=== PATIENT | male | born 1955 | race Caucasian/White ===

== ENCOUNTER 2025-04-20 11:42 | Emergency (ER) | payer OTHER, SELFPAY ==
[2025-04-20] VITALS (7 sets, daily range): BP systolic 118–165; BP diastolic 63–75; PULSE 75–86; RESP 14–22; TEMP 36.2–36.9; O2SAT 90–98; BMI 32.1
--- NOTE | 2025-04-20 12:13 | EDS_ITS ---
HPI History of Present Illness Chief Complaint: Chest Pain Informant: patient Onset/Context/Timing Onset: Weeks Activity at onset: sudden Timing: Continuous Quality: Positive for Dull Location: Right Parasternal and Right Chest Worsened By: Exertion Relieved By: Nothing Associated Symptoms: Positive for Dyspnea and Cough; Negative for Nausea, Vomiting, Diaphoresis, Fever, Lightheadedness, Acid Reflux or Palpitations Narrative Narrative: Patient presents with chest pain that has been constant for the past week. Patient states it began rather suddenly. Patient states it is worse over the right side of his chest. Patient states it is constant. Patient states it is worse with any exertion. Patient also admits to a cough with some green-yellow sputum. Patient describes his pain as dull. Patient denies any fevers or chills. Patient had an outpatient chest x-ray which showed atelectasis versus infiltrate in the right lower lobe. CVD Risk Factors: Negative for Hypertension, Diabetes, Hypercholesterolemia, Family History 1' </=55 or Smoking PE Risk Factors: Negative for Recent Travel/Surgery, Recent Immobilization, Prior DVT or PE, Cancer or OCP + Smoking + >/=35 PFSH PFSH Medical History (Updated 04/20/25 @ 15:[address] Neftali Yanez, DO) Kidney stones Non-smoker Irregular heart beat Medical History no medical history no medical history Home Medications ?Medication ?Instructions ?Recorded ?Last Taken ?Type cefalexin 750 mg PO DAILY 04/20/25 Unk nown History iburopen 200 mg PO PRN pain 04/20/25 Unknown History Allergy/AdvReac Type Severity Reaction Status Date / Time No Known Allergies Allergy Verified 04/20/25 11:43 Surgical History no surgical history no surgical history Social History Smoking Status: Never smoker ROS ROS ED Constitutional Constitutional ED: Denies chills or fever(s) Eyes Eyes: Denies blurry vision or change in vision ENT ENT ED: Denies rhinorrhea or sore throat Cardiovascular Cardiovascular: Reports as per HPI and chest pain; Denies palpitations Respiratory/Chest Respiratory/Chest: Reports cough and dyspnea Gastrointestinal Gastrointestinal: Denies nausea or vomiting Genitourinary Genitourinary ED: Denies dysuria or hematuria Musculoskeletal Musculoskeletal: Denies back pain or neck pain Integumentary Denies abscess or rash Neurologic Neurologic: Denies headache(s) or weakness Allergic/Immunologic Allergic/Immunologic ED: Denies mouth swelling or urticaria EXAM Physical Exam Const Vital Signs: 04/20/25 11:44 04/20/25 12:00 04/20/25 12:21 Temperature 97.1 F L Temperature Source Temporal Pulse Rate 86 Respiratory Rate 14 Respiratory Effort Short of Breath Blood Pressure 165/75 H Blood Pressure Mean 105 Pulse Ox 98 Oxygen Delivery Method Room Air Room Air 04/20/25 12:42 04/20/25 13:00 04/20/25 14:00 Temperature Temperature Source Pulse Rate 83 82 82 Respiratory Rate 16 22 H 21 H Respiratory Effort Blood Pressure 144/69 H 127/64 H 130/69 H Blood Pressure Mean 94 85 89 Pulse Ox 94 91 90 Oxygen Delivery Method Room Air Room Air Room Air 04/20/25 15:00 Temperature Temperature Source Pulse Rate 80 Respiratory Rate 16 Respiratory Effort Blood Pressure 133/65 H Blood Pressure Mean 87 Pulse Ox 93 Oxygen Delivery Method Positive well nourished and well developed Constitutional Narrative: BMI is 32.1. General Appearance ED: well developed and NAD HEENT Reports moist mucous membranes Neck supple and no JVD Chest Wall palpation of chest normal Resp normal respiratory effort and clear to auscultation bilaterally Cardio regular rate and regular rhythm GI soft to palpation, non-tender and non-distended Extremity normal to inspection Neuro oriented x3, CN's II-XII intact bilaterally and no sensory deficits noted Sensorium / Orientation: awake and alert Motor Exam: strength 5/5 throughout Psych mental status grossly normal MDM MDM MDM Narrative Medical decision making narrative: Differential diagnosis was pneumonia, bronchitis, pleurisy, pulmonary embolism, electrolyte abnormality, cardiac dysrhythmia, cardiac ischemia, and musculoskeletal pain. EKG will be obtained to assess for cardiac dysrhythmia and cardiac ischemia. CBC will be obtained to assess for leukocytosis and. Basic metabolic profile will be obtained to assess for electrolyte abnormality and renal function. High-sensitivity troponin will be obtained to assess for cardiac ischemia. D-dimer will be obtained to assess for pulmonary embolism. History & Record Review Additional record(s) reviewed:: No prior records Lab Data Attestation: I reviewed the patient's lab results. Lab results narrative: CBC was reviewed. There is a mild anemia with a hemoglobin of 8.4 and hematocrit of 26.2. This consistent with prior reported outpatient result of 8.5. Hematocrit was 26.2. The remainder is within normal limits. Basic metabolic profile was reviewed. BUN was 33 and creatinine was 2.11. There are no prior labs for comparison. D-dimer was reviewed and was 0.62. This is normal for the patient's age. Initial high-sensitivity troponin was reviewed and was 28. 2-hour repeat high-sensitivity troponin was reviewed and was 30. Labs: Laboratory Results - last 24 hr 04/20/25 04/20/25 12:30 15:08 WBC 3.8 L RBC 2.76 L Hgb 8.4 L Hct 26.2 L MCV 94.9 H MCH 30.4 MCHC 32.1 RDW Std Deviation 61.7 H RDW Coeff of Monique 18.2 H Plt Count 152 MPV 8.9 Immature Gran % (Auto) 3.400 H Neut % (Auto) 70.0 Lymph % (Auto) 12.0 L [place] % (Auto) 12.0 H Eos % (Auto) 2.1 Baso % (Auto) 0.5 Absolute Neuts (auto) 2.7 Absolute Lymphs (auto) 0.46 L Nucleated RBC % 0.8 D-Dimer Quant (PE/DVT) 0.62 H* Sodium 140 Potassium 4.3 Chloride 103 Carbon Dioxide 21.7 Anion Gap 15 BUN 33 H Creatinine 2.11 H Estim Creat Clear Calc 32.18 L Est GFR (MDRD) Non-Af 33 L BUN/Creatinine Ratio 15.6 Glucose 106 H Calcium 11.1 H Troponin T High Sens 28 H Troponin T Hi Sens 2 Hr 30 H Radiography Chest X-Ray - ED: 2 View, Read by ED Physician, Read by Radiologist and No Acute Disease Diagnostic Testing: Clinical Impression(s) from Imaging Studies Chest X-Ray 04/20/25 13:44 IMPRESSION: No acute cardiopulmonary process Reading Location: [facility] and lateral chest x-ray was obtained. There are 2 views. On my independent interpretation, lung [place] are clear. There is normal cardiac silhouette. Bony thorax is normal. There is no acute process noted. Radiologist also interpreted the x-ray and agrees. EKG Initial EKG: Attestation: I personally reviewed and interpreted this EKG as follows: Interpretation: Sinus Rhythm (88) and No Acute Injury Pattern Comments: EKG was obtained. On my independent interpretation, it showed a normal sinus rhythm with a rate of 88. [place] interval, QRS interval, and QTc intervals were all normal. [place] was normal. There are no acute ST or T wave changes. Prior EKG tracings: not available for review Prior: No Prior Treatment and Re-Evaluation :: Patient was given aspirin. Patient was advised of his findings. Patient was given IV fluids. Patient was instructed to follow-up with his primary care physician in 3 to 5 days for further evaluation of his renal function. Patient was instructed to return if worse in any way. Patient understood and was agreeable with the plan. All questions were answered. Discharge Plan Triage Chief Complaint: Chest Pain ED Provider: Neftali Yanez Dx/Rx/DC Orders Clinical Impression: Chest pain, Elevated serum creatinine Instructions: ED Chest Pain, Uncertain Cause Prescriptions: No Action cefalexin 750 mg PO DAILY iburopen 200 mg PO PRN (Reason: pain) Primary Care Provider: Care Physician,No Primary Referrals: Roc Nielsen DO [Non-Staff] - 3-5 Days Care Physician,No Primary [Primary Care Provider] - Print Language: [place] Citizen Disposition Disposition: Home, Self Care
--- NOTE | 2025-04-20 12:30 | EKG12_ITS ---
Test Reason : CP Blood Pressure : */* mmHG Vent. Rate : 88 BPM Atrial Rate : 88 BPM P-R Int : 168 ms QRS Dur : 94 ms QT Int : 366 ms P-R-T Axes : 43 28 51 degrees QTcB Int : 442 ms Normal sinus rhythm Minimal voltage criteria for LVH, may be normal variant ( Sokolow-Flores ) Borderline ECG Confirmed by JAZMYN ESCAMILLA ([id number]), editor magazine SARA CASTRO ([id number]) on 04/24/2025 6:47:44 AM Referred By: Neftali Yanez Confirmed By: JAZMYN ESCAMILLA
[2025-04-20 12:38] LABS: Hematocrit 26.2 % (40-54); Hemoglobin 8.4 g/dL (13.0-16.5); Immature Granulocytes Count 0.130 X10^3/uL (0.0-0.0); Mean Corp Hgb Conc 32.1 g/dL (32-36); Mean Corpuscular Volume 94.9 fL (80-94); Mean Platelet Vol. 8.9 fl (6.2-12.0); NRBC Flagged by Analyzer 0.8 % (0-5); POSITIVE DIFFERENTIAL YES; Platelet Count 152 K/mm3 (150-450); RBC Distribution Width CV 18.2 % (11.6-14.6); RBC Distribution Width SD 61.7 fl (35.1-43.9); Red Blood Count 2.76 M/mm3 (4.6-6.2); White Blood Count 3.8 K/mm3 (4.4-11.0)
[2025-04-20 13:09] LABS: D-Dimer Quantitative (DVT/PE) 0.62 FEU/ug/m (0.27-0.49)
[2025-04-20 13:18] LABS: Anion Gap 15 (5-15); BUN 33 mg/dL (4-19); BUN/Creat Ratio 15.6 RATIO (10-20); Calcium,Total 11.1 mg/dL (7.6-11.0); Carbon Dioxide 21.7 mmol/L (21.0-32.0); Chloride 103 mmol/L (98-108); Estimated Creatinine Clearance 32.18 ml/min (50-250); Glucose 106 mg/dL (70-99); Potassium 4.3 mmol/L (3.3-5.1); Troponin T High Sensitivity 28 ng/L (<=22)
--- NOTE | 2025-04-20 13:38 | CM.ED ---
Social Work SW spoke with patient regarding a primary care physician. Patient stated he goes to the [facility] clinic but does not really have a physician that follows him. [facility] provider list given. SW also inquired if patient would like to speak with Jean Burch as patient is private pay and not part of the [facility]. Patient stated he would like to speak with Roxi, call was placed and Roxi stated she would come to ED to meet with patient. \\ Masha Colmenares, LOGISTICIAN, ENERGY ADVISOR
--- NOTE | 2025-04-20 13:44 | RAD_ITS ---
PROCEDURE: CHEST PA AND LATERAL 04/20/2025 REASON FOR EXAM: CHEST PAIN TECHNIQUE: CHEST PA AND LATERAL COMPARISON: None FINDINGS: Hardware: EKG leads are present Heart: Heart is normal size. Mediastinum: Atherosclerotic aorta. Lungs: No consolidation or mass seen. No pleural effusion or pneumothorax Bones: Degenerative changes are identified within the thoracic spine. RAD/Chest PA and Lateral IMPRESSION: No acute cardiopulmonary process Reading Location: [id number]
[2025-04-20 15:29] LABS: Troponin T High Sens 2 HR 30 ng/L (<=22)
[2025-04-20] MEDS: 0.9% Normal Saline (1000mL) 1,000 ML 1000 ML IV (16:05)
== END 2025-04-20 17:41 | disposition home or self-care (01) ==
PROVIDERS: Emergency Provider Emergency Medicine; Referring Provider Emergency Medicine; Visit Provider Emergency Medicine
DX: R07.9 Chest pain, unspecified (principal); R79.89 Other specified abnormal findings of blood chemistry
CPT/HCPCS: 71046; 80048; 84484; 85025; 85379; 93005; 96360; 99284; A4216